=== PATIENT | female | born 1935 | race Caucasian/White ===

== ENCOUNTER 2017-03-19 11:19 | Day surgery (SDC) | payer MEDICARE, BC ==
[2017-03-19] VITALS (11 sets, daily range): BP systolic 133–167; BP diastolic 70–83; PULSE 61–74
[~2017-03-19] VITALS: Ht 165.2 cm; Wt 56.9 kg
[~2017-03-19 11:19] MED LIST: ABILIFY5 MG PO; ACTOS 15MG TAB15 MG PO; ACTOS30 MG PO; ASPIR-LOW81 MG PO; ASPIRIN 81M81 MG/TA2 PO; ASPIRIN E.C. 8181 MG PO; ATROVENT INHALE14 GM IH; BP Med; CALCIUM CARBON500 M1 PO; CALTRATE 600 +1 TAB PO; CANA300T PO; CELEXA40 MG PO; CLARITIN 1010 MG/TAB PO; COLACE 100100 MG/CAP PO; CORGARD 40M40 MG/TAB PO; COZAAR 50MG50 MG/TAB PO; COZAAR50 MG PO; DEPRESSION MED; FLEXERIL5 MG PO; GLUCOPHAGE1000 MG PO; GLUCOPHAGE500 MG PO; HUMALOG 75/2100 U/ML SQ; HUMALOG MIX 75/10 ML SC; HUMALOG MIX 75/10 ML SQ; IMDUR 30MG30 MG/TAB PO; INSULIN 75/2100 U/ML SQ; LAMICTAL25 MG PO; LEXAPRO 10MG10 MG PO; LIPITOR 40MG TA40 MG PO; MACRODANTIN100 PO; MICARDIS40 MG PO; MULTIPLE VITAMI1 CAP PO; MVI; NAPROSYN 2250 MG/TAB PO; NEURONTIN300 MG/CAP PO; NITRO-DUR0.4 MG/PAT TD; NITROSTAT0.4 MG/TAB SL; NOVOLOG 100U100 U/M1 SQ; OMEPRAZOLE40 MG PO; OSCAL 500 TAB500 MG PO; PREDNISONE20 MG PO; PRIL40 PO; PRILOSEC 20MG20 MG PO; PROAIR HFA0.09 MG/AC IH; PROTONIX 40MG T40 MG PO; REGLAN 10MG10 MG/TAB PO; REMERON 15M15 MG/TAB PO; RT ADVAIR 128 DISKUS IH; RT ADVAIR 228 DISKUS IH; RT ADVAIR HFA 1112 G IH; RT SPIRIVA18 MCG IH; SINEMET 10/101 UDTAB PO; SINEMET 25/101 UDTAB PO; THEO-24 20200 MG/CAP PO; THEO-DUR 2200 MG/TAB PO; TOBRADEX EYE DRO5 ML OP; TOPROL XL 25MG25 MG PO; ZITHROMAX 250M250 MG PO; ZOCOR40 MG PO; ZOFRAN 4MG T4 MG/TAB PO; ZOLOFT 100MG100 MG PO; ZOLOFT 25MG25 MG PO; ZOLOFT 50MG50 MG PO; ZOLOFT100 MG PO; [UNRECOGNIZED DRUG - OTHER] PO
[2017-03-19 12:00] LABS: HEMATOCRIT 41.4 % (37.0-47.0); MEAN CELL VOLUME 91 fl (80.0-100.0); MEAN CORPUSCULAR HEMOGLOBIN 29 pg (27.0-31.0); MEAN CORPUSCULAR HGB CONC 31 g/dl (33.0-37.0); MEAN PLATELET VOLUME 9.4 fl (7.4-10.4); PLATELET COUNT 150 K/mm3 (130-400); RED BLOOD COUNT 4.54 M/mm3 (4.10-5.30); REDCELL DISTRIBUTION WIDTH-CV 14.3 % (11.5-14.5)
[2017-03-19 12:07] LABS: INR 1.1 (0.8-3.0); PROTHROMBIN TIME 12.2 SECONDS (9.7-12.8)
[2017-03-19 12:11] LABS: CALCIUM 9.7 mg/dL (8.4-10.2); CREATININE, serum 0.74 mg/dL (0.52-1.25); POTASSIUM 4.3 mmol/L (3.4-5.0)
[2017-03-19] MEDS ORDERED: DIOVAN 160MG160 MG PO (12:40)
[2017-03-19] MEDS ORDERED: IMDUR 30MG30 MG/TAB (12:41)
[2017-03-19] MEDS ORDERED: SYNTHROID0.05 MG/TA PO (12:42)
[2017-03-19] MEDS ORDERED: NITROSTAT0.4 MG/TAB SL (15:12)
== END 2017-03-19 16:49 | disposition home or self-care (01) ==
LOC: COL.CAR 11:19
PROVIDERS: Internal Medicine Interventional Cardiology
DX: I25.118 Atherosclerotic heart disease of native coronary artery with other forms of angina pectoris (principal); I83.813 Varicose veins of bilateral lower extremities with pain; I83.893 Varicose veins of bilateral lower extremities with other complications; I87.2 Venous insufficiency (chronic) (peripheral); J44.9 Chronic obstructive pulmonary disease, unspecified; E11.9 Type 2 diabetes mellitus without complications; E78.5 Hyperlipidemia, unspecified; I10 Essential (primary) hypertension; I73.9 Peripheral vascular disease, unspecified; Z79.4 Long term (current) use of insulin; Z87.891 Personal history of nicotine dependence; Z82.49 Family history of ischemic heart disease and other diseases of the circulatory system; Z82.5 Family history of asthma and other chronic lower respiratory diseases
CPT/HCPCS: J2250; J3010; Q9967

== ENCOUNTER → 2020-02-14 | Outpatient (CLI) | payer MEDICARE, BC ==
[~2020-02-14] MED LIST changes: +DIOVAN 160MG160 MG PO; +IMDUR 30MG30 MG/TAB; +SYNTHROID0.05 MG/TA PO
[2020-02-14 17:52] LABS: ANION GAP 10 mmol/L (7-16); BLOOD UREA NITROGEN 26 mg/dL (7-17); CALCIUM 9.4 mg/dL (8.4-10.2); CARBON DIOXIDE 30 mmol/L (22-30); CHLORIDE 99 mmol/L (98-107); CREATININE, serum 0.95 (0.52-1.25); GLUCOSE 245 mg/dL (74-106); POTASSIUM 4.1 mmol/L (3.4-5.0); SODIUM 138 mmol/L (137-145)
[2020-02-14 18:21] LABS: TROPONIN-I < 0.012 ng/mL (0.000-0.035)
== END ==
LOC: ZCOL.LAB 17:31
PROVIDERS: Internal Medicine Interventional Cardiology
DX: R06.02 Shortness of breath (principal)

== ENCOUNTER 2021-06-13 09:11 | Day surgery (SDC) | payer MEDICARE, BC ==
[~2021-06-13] VITALS: Ht 165.1 cm; Wt 52.4 kg
[2021-06-13] MEDS ORDERED: BREZTRI AEROS10.7 GM IH (09:49)
[2021-06-13] MEDS ORDERED: COZAAR 50MG50 MG/TAB PO (09:51)
[2021-06-13] MEDS ORDERED: SYNTHROID0.075 MG/T PO (09:53)
[2021-06-13] MEDS ORDERED: ARICEPT 5MG PO (09:54)
[2021-06-13] MEDS ORDERED: PRECOSE 25MG25 MG PO (09:54)
[2021-06-13] MEDS ORDERED: LEVEMIR FLEX100 U/ML SQ (09:55)
[2021-06-13] MEDS ORDERED: VITAMIN E1000 U/CAP PO (09:56)
[2021-06-13 09:57] VITALS: BP 151/78; PULSE 72; TEMP 98.1
[2021-06-13 11:05] VITALS: BP 161/86; PULSE 74; TEMP 98.4
--- NOTE | 2021-06-13 11:05 | NUR ---
Pt returned to bay 9 via cart. Drowsy, needing many cues to ambulate to recliner in bay. Daughter, Surekha, present. VSS-BP noted to be elevated and pt reports she did not take her normal BP meds this morning. Given OJ and pudding per request. Warm blankets given. Call light in reach.
[2021-06-13 11:15] VITALS: BP 164/98; PULSE 69
[2021-06-13 11:30] VITALS: BP 173/90; PULSE 69
--- NOTE | 2021-06-13 11:48 | NUR ---
Pts IV removed with catheter tip intact and pressure dressing applied. Tolerated oral intake. Pt frequently asking if she can go home yet. Instructed Dr Diego with visit with them prior to dc. This RN did review dc packet with pt and pts daughter, both verbalized understanding.
--- NOTE | 2021-06-13 12:10 | NUR ---
Pt taken via wheelchair to private vehicle for dc home with daughter driving.
== END 2021-06-13 12:10 | disposition home or self-care (01) ==
LOC: SDCO 09:11
DX: K22.2 Esophageal obstruction (principal); K21.9 Gastro-esophageal reflux disease without esophagitis; Z79.82 Long term (current) use of aspirin; Z87.891 Personal history of nicotine dependence
CPT/HCPCS: C1726; J2704; J7030

== ENCOUNTER 2021-12-08 19:19 | Observation (INO) | payer MEDICARE, BC ==
[~2021-12-08] VITALS: Ht 165.1 cm; Wt 53.5 kg
[~2021-12-08 19:19] MED LIST changes: +ARICEPT 5MG PO; +BREZTRI AEROS10.7 GM IH; +LEVEMIR FLEX100 U/ML SQ; +PRECOSE 25MG25 MG PO; +SYNTHROID0.075 MG/T PO; +VITAMIN E1000 U/CAP PO
[2021-12-08 20:33] LABS: BASO % 0.1 % (0.0-2.0); EOS % 0.1 % (0.0-4.0); GRAN % 83.6 % (42.2-75.2); HEMOGLOBIN 10.4 g/dl (12.5-16.0); LYMPH # 0.5 K/mm3 (1.2-3.4); LYMPH % 7.1 % (20.0-51.0); MEAN CELL VOLUME 77 fl (80.0-100.0); MEAN CORPUSCULAR HEMOGLOBIN 22 pg (27-31); MEAN CORPUSCULAR HGB CONC 29 g/dl (33.0-37.0); MEAN PLATELET VOLUME 9.7 fl (7.4-10.4); MONO # 0.6 K/mm3 (0.1-0.6); MONO % 8.7 % (1.7-9.3); PLATELET COUNT 145 K/mm3 (130-400); RED BLOOD COUNT 4.64 M/mm3 (4.10-5.30); REDCELL DISTRIBUTION WIDTH-CV 16.4 % (11.5-14.5)
[2021-12-08 20:34] LABS: HEMATOCRIT 35.7 % (37.0-47.0)
[2021-12-08 20:44] LABS: BILIRUBIN,TOTAL 0.7 mg/dL (0.2-1.2); CALCIUM 9.3 mg/dL (8.4-10.2); CREATININE, serum 1.13 mg/dL (0.57-1.11); POTASSIUM 4.1 mmol/L (3.5-4.5)
[2021-12-08 20:50] LABS: TROPONIN-I 0.012 ng/mL (0.00-0.033)
[2021-12-09] VITALS (11 sets, daily range): BP systolic 106–143; BP diastolic 48–92; PULSE 70–92; TEMP 98–99
--- NOTE | 2021-12-09 00:20 | NUR ---
RECEIVED PATIENT TO ROOM 342 VIA E.D. CART/TRANSPORTED BY [email or web address]. PATIENT AWAKE/ALERT, STATING HER DAUGHTER WENT HOME, DID NOT WANT NURSING TO CALL DAUGHTER TO VERIFY MED REC, STATED A LIST OF MEDS WAS GIVEN "TO THE OTHER LADY WHO CAME IN 30 MIN AGO". PATIENT STATES SHE IS NOT ABLE TO RECALL WHAT MEDS SHE TAKES. TELE IN PLACE. INT TO L HAND. DENIES ANY PATIENT OR DISCOMFORT AT THIS TIME.
--- NOTE | 2021-12-09 01:49 | NUR ---
PATIENT STATES SHE NORMALLY WEARS O2 "ONLY AT NIGHT" AT 3 LPM. RT PLACED PATIENT ON O2 AT 3 LPM.
--- NOTE | 2021-12-09 02:29 | NUR ---
FAXED REQUEST FOR MED LIST OF ACTIVE MEDS FOR PATIENT TO BE FAXED TO [facility]. ALSO [facility] ON PHARMACY CONTACT # [phone] REQUESTING MED LIST OF PATIENT'S ACTIVE MEDS TO BE FAXED TO [facility], [facility] SX FAX # PROVIDED IN MESSAGE LEFT. WAITING FOR ANSWERS TO EITHER FAXED OR PHONE MESSAGE REQUESTS.
--- NOTE | 2021-12-09 02:37 | NUR ---
[facility], PROVIDER HAD PATIENT'S MED LIST, COPY MADE FOR PROVIDER/PATIENT'S CHART AND ORIGINAL RETURNED TO PATIENT. INFORMED PROVIDER FAXED/MESSAGE FOR PATIENT'S MED LIST TO [facility]. ALSO CLARIFIED FSBS Q6H WITH PATIENT ON NPO STATUS, PROVIDER CONFIRMED FSBS Q6H TO BE ORDERED.
[2021-12-09 03:14] LABS: BASO % 0.4 % (0.0-2.0); EOS # 0.1 K/mm3 (0.0-0.7); EOS % 1.1 % (0.0-4.0); GRAN # 3.2 K/mm3 (1.4-6.5); GRAN % 70.7 % (42.2-75.2); LYMPH # 0.8 K/mm3 (1.2-3.4); LYMPH % 17.6 % (20.0-51.0); MEAN CELL VOLUME 78 fl (80.0-100.0); MEAN CORPUSCULAR HGB CONC 30 g/dl (33.0-37.0); MEAN PLATELET VOLUME 9.6 fl (7.4-10.4); MONO # 0.5 K/mm3 (0.1-0.6); PLATELET COUNT 123 K/mm3 (130-400); RED BLOOD COUNT 3.96 M/mm3 (4.10-5.30); REDCELL DISTRIBUTION WIDTH-CV 16.4 % (11.5-14.5)
[2021-12-09 03:17] LABS: HEMATOCRIT 30.8 % (37.0-47.0); HEMOGLOBIN 9.1 g/dl (12.5-16.0); MEAN CORPUSCULAR HEMOGLOBIN 23 pg (27-31)
--- NOTE | 2021-12-09 03:17 | NUR ---
ORIGINAL LIST OF MEDS FROM HOME REVIEWED WITH PATIENT, PATIENT REPORTS SHE DOES NOT REMEMBER WHEN SHE LAST TOOK ANY OF HER HOME MEDS LISTED ON HOME MED LIST AND REPORTED THAT HER DAUGHTER WOULD NOT KNOW WHEN MEDS WERE LAST TAKEN.
[2021-12-09 03:38] LABS: CALCIUM 8.6 mg/dL (8.4-10.2); CREATININE, serum 0.9 mg/dL (0.57-1.11); POTASSIUM 3.9 mmol/L (3.5-4.5)
[2021-12-09 03:45] LABS: TROPONIN-I 6 HR POST INITIAL 0.013 ng/mL (0.00-0.033)
--- NOTE | 2021-12-09 05:12 | NUR ---
BLADDER RESULTS CALLED TO [facility] PROVIDER, ALSO INSTRUCTED TO GET RECENT IP STAY INFORMATION AT [facility] FAXED TO [facility]. SPOKE WITH NIGHT COLLISION REPAIRER, BENITO, WITH REQUEST FOR RECORDS, FAX FOR [facility] GIVEN. WAITING FOR RECORDS TO BE SENT REQUESTED.
[2021-12-09] MEDS ORDERED: ACTOS30 MG PO (06:14)
[2021-12-09] MEDS ORDERED: DITROPAN XL 5MG5 M1 PO (06:14)
[2021-12-09] MEDS ORDERED: MYSOLINE 5050 MG/TAB PO (06:14)
--- NOTE | 2021-12-09 06:55 | NUR ---
CHANGE OF SHIFT REPORT GIVEN TO DAY SHIFT AMAYA LEES WITH RAFAELG STUDENT PRESENT.
[2021-12-09 07:05] LABS: COLLECTION METHOD CLEAN CATCH
[2021-12-09 07:27] LABS: SQUAMOUS EPITHELIAL 0-2 /hpf (0-10); URINE BACTERIA None Seen /hpf (NONE SEEN); URINE RBC 0-2 /hpf (0-2)
[2021-12-09 07:29] LABS: PH 6.5 (5.0-8.5); URINE APPEARANCE Clear (CLEAR/HAZY); URINE BLOOD Negative (NEGATIVE); URINE COLOR Yellow (YELLOW); URINE GLUCOSE Negative (NEGATIVE); URINE KETONE Negative (NEGATIVE); URINE NITRATE Negative (NEGATIVE); URINE PROTEIN(semi-quant) Negative (NEGATIVE); URINE UROBILINOGEN 0.2 E.U/dL (0.2-1.0)
--- NOTE | 2021-12-09 08:00 | NUR ---
Shift assessment completed. Remains NPO for procedure. Telemetry on & in place. IV in L hand NS running @ 75ml/hr - IV site CDI. Stated no needs/concerns at this time. Resting in bed watching television - nodding off frequently.
--- NOTE | 2021-12-09 08:42 | NUR ---
PT RESTING IN BED. MORNING MEDICATIONS GIVEN. PT REMAINS NPO FOR PROCEDURE. CONSENT FORM SIGNED AND PLACE ON THE CHART. IVF INFUSING. PT ON 3L O2 VIA NC. PT REPORTS SHE HAS NO ABDOMINAL PAIN AT THIS TIME. SHIFT ASSESSMENT COMPLETED. CALL LIGHT WITHIN REACH. WILL CONTINUE TO MONITOR.
[2021-12-09] MEDS ORDERED: DOXYCYCLINE 10100 MG PO (09:40)
[2021-12-09] MEDS ORDERED: PREDNISONE20 MG PO (09:41)
--- NOTE | 2021-12-09 14:00 | NUR ---
stock worker met with patient and her son, Tani and daughter Colleen [phone] to discuss discharge planning. Patient lives alone in an apartment in [place] and plans to return there upon discharge. Children state that patient needs a higher level of care and we all discussed assisted living, how to access and medicaid application needed and how to apply. Patient's primary care provider is Dr Blas in [place], [place]. Worker requested physical and occupational therapy for assistance with disposition recommendation. Patient was ordered home health through [facility] health when discharged from the [facility]. Worker advised that we can continue that plan upon discharge.
[2021-12-10 00:18] VITALS: BP 148/61; PULSE 92; TEMP 99
--- NOTE | 2021-12-10 04:11 | NUR ---
SHIFT REPORT FROM AMAYA LEES. PATIENT IN BED ON ROOM ENTRY. PATIENTS FAMILY IN ROOM, AYAKA JUAREZ. ANN REQUESTED THAT SOCIAL WORK SPEAK WITH HER ABOUT DISCHARGE PLANS SHE IS THE ONE THAT WILL MAKE THE DECISION FOR PATIENT. NAME AND NUMBER IN CHART AND WILL RELAY THIS TO DAY SHIFT NURSE. HS MEDS PER EMAR. DENIES PAIN. DENIES NAUSEA. NO ADDITIONAL NEEDS PER PATIENT. CALL LIGHT IN REACH.
[2021-12-10 04:13] VITALS: BP 124/59; PULSE 81; TEMP 99
[2021-12-10 06:40] LABS: BASO % 0.3 % (0.0-2.0); EOS # 0.1 K/mm3 (0.0-0.7); EOS % 1.6 % (0.0-4.0); GRAN # 2.4 K/mm3 (1.4-6.5); GRAN % 66.3 % (42.2-75.2); LYMPH # 0.8 K/mm3 (1.2-3.4); LYMPH % 20.4 % (20.0-51.0); MEAN CELL VOLUME 80 fl (80.0-100.0); MEAN CORPUSCULAR HGB CONC 29 g/dl (33.0-37.0); MEAN PLATELET VOLUME 10.1 fl (7.4-10.4); MONO # 0.4 K/mm3 (0.1-0.6); MONO % 10.9 % (1.7-9.3); PLATELET COUNT 115 K/mm3 (130-400); RED BLOOD COUNT 3.76 M/mm3 (4.10-5.30); REDCELL DISTRIBUTION WIDTH-CV 16.5 % (11.5-14.5)
[2021-12-10 06:50] LABS: HEMATOCRIT 30.2 % (37.0-47.0); HEMOGLOBIN 8.6 g/dl (12.5-16.0); MEAN CORPUSCULAR HEMOGLOBIN 23 pg (27-31)
[2021-12-10 06:52] LABS: CALCIUM 8.4 mg/dL (8.4-10.2); CREATININE, serum 0.8 mg/dL (0.57-1.11)
[2021-12-10 07:00] VITALS: BP 145/59; PULSE 81; TEMP 98
--- NOTE | 2021-12-10 07:40 | NUR ---
Student reporting patient complained of pain at IV site stating it was sore last night after being flushed. Noted to have some old bloody drainage underneath the dressing. Patient reports to this nurse that the site was painful after being flushed last NOC but is not painful at this time. NS@75mls infusing without s/s of infiltration. Will continue to monitor and assess site.
[2021-12-10] MEDS ORDERED: PROTONIX 40MG T40 MG PO (08:45)
--- NOTE | 2021-12-10 08:55 | NUR ---
Shift assessment complete. IV in L hand CDI NS @ 75mL/hr - patient states IV site "hurts" - RN made aware - no redness/ warmth/ swelling. Telemetry on. Patient stated no needs/ concerns at this time. 40% of breakfast comsumed - stated the food "just wasn't good". Resting comfortably in bed with television on.
--- NOTE | 2021-12-10 09:05 | NUR ---
C/O indigestion-tums given per dr pace
--- NOTE | 2021-12-10 10:45 | NUR ---
l[employer] mill worker met with patient and son at bedside. Worker contacted daughter, Colleen, and arranged discharge home today at Noon via Colleen. Worker contacted Jazzy at [facility] and faxed orders and clinical information. [facility] was going to start patient for care after her discharge from the [facility], however, patient came to this hospital that date. Worker collaborated with patient's nurse regarding patient's discharge plan.
[2021-12-10 10:55] VITALS: BP 150/63; PULSE 97; TEMP 97.3
--- NOTE | 2021-12-10 11:09 | NUR ---
Initial visit; Patient thanked Sec Accountant for visit and stated she is feeling better. Sec Accountant offered prayer and will keep Nelll in her prayers and will look in on her again.
--- NOTE | 2021-12-10 12:00 | NUR ---
PATIENT RECIEVED DISCHARGE INSTRUCTIONS INCLUDING FOLLOWUP APPOINTMENTS, NEW MEDICATION ORDERS, AND HOSPITAL SUMMARY. PATIENT AND FAMILY ACKNOWLEDGED UNDERSTANDING. PATIENT WAS TAKEN VIA WHEELCHAIR WITH PRECISION MARKET INSIGHTS TO OUTSIDE OF BUILDING FOR DEPART. NO ISSUES.
== END 2021-12-10 12:00 | disposition home health service (06) ==
LOC: COL.ER 19:19 → SURG 23:00
PROVIDERS: Emergency Medicine; Hospitalist; Nurse Practitioner Family; ADMIT Student in an Organized Health Care Education/Training Program
DX: R10.13 Epigastric pain (principal); T18.2XXA Foreign body in stomach, initial encounter; K21.9 Gastro-esophageal reflux disease without esophagitis; K58.9 Irritable bowel syndrome, unspecified; K44.9 Diaphragmatic hernia without obstruction or gangrene; K22.2 Esophageal obstruction; N17.9 Acute kidney failure, unspecified; E78.5 Hyperlipidemia, unspecified; I10 Essential (primary) hypertension; E03.9 Hypothyroidism, unspecified; I25.10 Atherosclerotic heart disease of native coronary artery without angina pectoris; E11.8 Type 2 diabetes mellitus with unspecified complications; J44.9 Chronic obstructive pulmonary disease, unspecified; J96.11 Chronic respiratory failure with hypoxia; G20 Parkinson's disease; D50.9 Iron deficiency anemia, unspecified; I70.0 Atherosclerosis of aorta; R41.841 Cognitive communication deficit; I70.1 Atherosclerosis of renal artery; Z79.899 Other long term (current) drug therapy; Z79.84 Long term (current) use of oral hypoglycemic drugs; Z79.890 Hormone replacement therapy; Z79.4 Long term (current) use of insulin; Z66 Do not resuscitate
CPT/HCPCS: C1726; C9113; G0378; J2270; J2765; J7030; Q9967